=== PATIENT | male | born 1965 | race African-American/Black ===

== ENCOUNTER → 2017-04-04 | Outpatient (CLI) | payer OTHER ==
--- NOTE | ~2017-04-04 | US85 ---
[facility] A Service of [facility] RADIOLOGY TEXT RESULTS PATIENT: EWA PATEL LOCATION: CNIV : 65 UNIT #: [id number] AGE: [address]: GENET BERTRAND APRN SEX: M ORDER DR: [id number] [facility] [address] [place], [place] [address] [id number] O MR#: [id number] Acc #: [id number] NAME: EWA PATEL : 1965 SEX: M STUDY DATE/TIME: 04/04/2017 16:55 UNIT: CNIV ROOM: STUDY DESCRIPTION: JASBIR Barney Un[employer] or [employer] Stdy Attending Physician: Genet Bertrand Aprn Referring Physician: Genet Bertrand Aprn Ordering Physician: Genet Bertrand Aprn Primary Care Physician: Genet Bertrand Aprn MEDICAL IMAGING REPORT This report is preliminary unless electronic signature is present EXAM Right lower extremity venous duplex 04/04/2017 HISTORY Right leg pain after open heart surgery 1 week ago with right lower extremity swelling for 1 week. Evaluate for deep vein thrombosis. FINDINGS Dominguez-scale images of the right lower extremity were obtained as well as Doppler waveform spectral analysis and color flow Doppler imaging. There is normal blood flow and compressibility in the right common femoral vein, deep femoral vein, superficial femoral vein and popliteal vein. Normal blood flow and compressibility is seen in the deep veins of the right calf. There is however occlusive thrombus in the right distal saphenous vein at the level of the knee, characteristic of superficial thrombophlebitis. IMPRESSION 1. No evidence of deep vein thrombosis within the right lower extremity. 2. Occlusive thrombus in the right greater saphenous vein at the level of the right knee, characteristic of superficial thrombophlebitis. STAT * RESULT Dictated by... Ky Campos M.D. THIS IS AN ELECTRONICALLY VERIFIED REPORT Ky Campos M.D. at 04/05/2017 3:37 PM KRT/to [facility] A Service of [facility] RADIOLOGY TEXT RESULTS PATIENT: EWA PATEL LOCATION: CNIV : 65 UNIT #: [id number] AGE: [address]: GENET BERTRAND APRN SEX: M ORDER DR: TD: 04/04/2017 17:16 JOB #: [id number] MEDICAL IMAGING REPORT Page 1 of 1 COPY
== END | disposition home or self-care (01) ==
LOC: CNIV 16:22
DX: M79.89 Other specified soft tissue disorders (principal); I82.811 Embolism and thrombosis of superficial veins of right lower extremity
CPT/HCPCS: 93971